=== PATIENT | male | born 1970 | race Caucasian/White ===

== ENCOUNTER 2024-09-21 09:30 | Emergency (ER) | payer SELFPAY ==
[~2024-09-21 09:30] MED LIST: Sodium Chloride 0.9% 10 ML Syringe FLUSH PRN
[2024-09-21 09:43] LABS: BASOPHILS PERCENT AUTO 0.2 % (0.0-1.0); HEMOGLOBIN 15.9 g/dL (14.0-18.0); LYMPHOCYTES PERCENT AUTO 28.4 % (20.5-50.1); MEAN CORPUSCULAR HEMOGLOBIN 28.6 pg (27.0-34.0); MEAN CORPUSCULAR HGB CONC 34.6 g/dL (33.0-35.0); MEAN CORPUSCULAR VOLUME 82.9 fL (80-100); MONOCYTES PERCENT AUTO 11.3 % (2-8); NEUTROPHILS PERCENT AUTO 57.1 % (42.2-75.2); PLATELET COUNT,PLT 184 10^3/uL (150-450); RED BLOOD CELL COUNT 5.55 10^6/uL (4.6-6.2); WHITE BLOOD CELL COUNT,WBC 6.3 10^3/uL (5.0-10.0)
[2024-09-21] MEDS: Iopamidol 755 Mg/ML 100 ML Bottle IVPUSH ONE (09:48)
[2024-09-21 09:58] LABS: INR 1.2 (0.9-1.2); PROTHROMBIN TIME 12.1 SEC (9.0-12.0); PTT,PARTIAL THROMBOPLSTIN TIME 24.5 SEC (22.0-34.0)
[2024-09-21] MEDS: Aspirin 81 MG Tab.Chew PO ONE (10:06)
[2024-09-21 10:15] LABS: ALANINE AMINOTRANSFERASE,ALT 23 U/L (16-63); ALBUMIN 3.1 g/dL (3.4-5.0); ALKALINE PHOSPHATASE 218 U/L (46-116); ASPARTATE AMNIOTRANSFERASE,AST 19 U/L (15-37); BILIRUBIN TOTAL 0.4 mg/dL (0.2-1.0); BLOOD UREA NITROGEN,BUN 9 mg/dL (7-18); BUN/CREATININE RATIO 11.4 (No establ ref range); CALCIUM 8.9 mg/dL (8.5-10.1); CARBON DIOXIDE,CO2 27 mmol/L (21-32); CHLORIDE,CL 106 mmol/L (98-107); CREATININE 0.79 mg/dL (0.70-1.30); GLUCOSE RANDOM 193 mg/dL (70-99); PROTEIN TOTAL,TP 6.7 g/dL (6.4-8.2)
[2024-09-21 10:19] LABS: ANION GAP 11.3 mEq/L (7-13); SODIUM,NA 143 mmol/L (136-145)
[2024-09-21 10:21] LABS: A/G RATIO 0.86; ESTIMATED GFR 106 mL/min (>=60); POTASSIUM,K 1.3 mmol/L (3.5-5.1)
== END 2024-09-21 10:19 ==
LOC: DL.ED 09:30
DX: R29.810 Facial weakness (principal)
CPT/HCPCS: 36415; 70450; 70496; 70498; 80053; 84484; 85025; 85610; 85730; 93010; 99285; A9270; Q9967